=== PATIENT | male | born 1965 | race Caucasian/White ===

== ENCOUNTER → 2021-04-05 | Outpatient (CLI) | payer OTHER ==
--- NOTE | 2021-04-20 08:27 | PF ---
[address] [address] PULMONARY FUNCTION REPORT Name: ORLIN ISSA Room: [facility].Wilmer.#: [id number] Admission: 04/05/21 [facility] Date of : 65 Report #: [id number] THIS REPORT FOR: cc: [facility] - Clinic physician unknown [facility] - Clinic physician unknown Leo Reyez MD ~ DATE OF VISIT: 04/05/2021 The FEV1/FVC ratio is decreased to 65% with an FVC decreased to 71%. The FEV1 is also decreased to 60% and the FEF 25-75 is decreased to 38%. After the administration of a bronchodilator, there is a 13% increase in FVC. There is no significant increase in any of the other values mentioned here. The patient's post-bronchodilator FEV1 is 2.55 liters. The flow volume loop is concave upwards. Only a spirometry was performed. IMPRESSION: 1. Moderate obstruction with evidence of reversibility. 2. There is a possibility of restriction being present as well, likely mild to moderate. If clinically indicated, then full pulmonary function tests with lung volumes can be performed to evaluate this further. <ELECTRONICALLY SIGNED> By: Leo Reyez MD 04/20/21 [id number] Reyez MD /nt
== END ==
LOC: M.PUL 12:00
PROVIDERS: ATTEND Chiropractor
DX: J98.8 Other specified respiratory disorders (principal); J45.998 Other asthma